=== PATIENT | male | born 1955 | race African-American/Black ===

== ENCOUNTER 2017-11-07 06:02 | Observation (INO) ==
[2017-11-07] MEDS ORDERED: ONDANSETRON 4 MG/2 ML VIAL IV PRN (08:26)
[2017-11-07] MEDS ORDERED: ZALEPLON 5 MG CAPSULE PO PRN (08:26)
[2017-11-07] MEDS ORDERED: POTASSIUM CHLORIDE 20 MEQ TABLET PO PRN (08:26)
[2017-11-07] MEDS ORDERED: ACETAMINOPHEN 325 MG TABLET PO PRN (08:26)
[2017-11-07] MEDS ORDERED: MAGNESIUM SULF RIDER 2 GM in PREMIX 1 EACH IV PRN ×2 (08:26→09:32)
[2017-11-07] MEDS ORDERED: MAGNESIUM SULF RIDER 4 GM in PREMIX 1 EACH IV PRN (08:26)
[2017-11-07] MEDS ORDERED: guaiFENesin/DM ER 600-30 MG TABLET PO PRN (08:26)
[2017-11-07] MEDS ORDERED: BISACODYL 5 MG TABLET PO PRN (08:26)
[2017-11-07] MEDS ORDERED: NITROGLYCERIN 2% OINT 1 INCH/GM PACK TOP STA (08:31)
[2017-11-07 08:45] LABS: Basophils % 0.4 % (0.0-0.8); Eosinophils % 0.7 % (0.00-10.9); Hematocrit 41.5 VOL% (42.0-52.0); Hemoglobin 13.4 GM/DL (14.0-18.0); Immature Granulocytes % 0.4 %; Immature Granulocytes Absolute 0.02 #; Lymphocytes # 2.3 10*3/uL (1.4-4.0); Mean Corpuscular HGB Conc 32.3 GM/DL (32-36); Mean Corpuscular Hemoglobin 27 PG (27-34); Mean Corpuscular Volume 83.2 FL (87-102); Mean Platelet Volume 10.3 FL (9.6-12.0); Monocytes # 0.4 10*3/uL (0.11-0.8); Monocytes % 6.3 % (1.7-12.7); Neutrophils # 2.8 10*3/uL (1.4-7.4); Neutrophils % 51.2 % (38.7-73.9); Platelet Count 236 T/CUMM (130-400); Red Blood Count 4.99 MC/CUMM (3.8-5.5); Red Cell Distribution Width 14.4 % (9.3-17.3); White Blood Count 5.5 T/CUMM (4-12)
[2017-11-07 08:46] LABS: Calcium 8.9 MG/DL (8.5-10.1); Osmolality,Calculated 283.4 MOS/KG (273-304); Potassium 3.7 MMOL/L (3.5-5.1)
[2017-11-07 08:55] LABS: Risk Ratio 3.62
[2017-11-07] MEDS ORDERED: ASPIRIN CHEW 81 MG TABLET PO ONE (09:16)
[2017-11-07] MEDS ORDERED: NITROGLYCERIN 2% OINT 1 INCH/GM PACK TOP ONE (09:16)
[2017-11-07] MEDS ORDERED: PANTOPRAZOLE 40 MG TABLET PO ONE (09:16)
[2017-11-07] MEDS ORDERED: LISINOPRIL 10 MG TABLET ONE (09:16)
[2017-11-07 09:18] LABS: CKMB % 3.8 %
[2017-11-07] MEDS: LISINOPRIL 10 MG TABLET PO SCH (09:19)
[2017-11-07] MEDS: PANTOPRAZOLE 40 MG TABLET PO SCH (09:20)
[2017-11-07 09:21] LABS: Troponin I Only 5.15 NG/ML (0.00-0.045)
[2017-11-07] MEDS: SODIUM CHLORIDE 0.9% 1,000 ML IV SCH ×2 (09:28→15:33)
[2017-11-07] MEDS ORDERED: POTASSIUM CHLORIDE RIDER 10 MEQ in PREMIX 1 EACH IV PRN (09:32)
[2017-11-07] MEDS ORDERED: DIAZEPAM 5 MG TABLET PO ONE (09:32)
[2017-11-07] MEDS ORDERED: diphenhydrAMINE CAP 25 MG CAPSULE PO ONE (09:32)
[2017-11-07] MEDS: METOPROLOL SUCCINATE XL 100 MG TABLET PO SCH (09:49)
[2017-11-07] MEDS ORDERED: MIDAZOLAM 2 MG/2 ML VIAL ONE (10:03)
[2017-11-07] MEDS ORDERED: fentaNYL 100 MCG/2 ML VIAL ONE (10:03)
[2017-11-07] MEDS ORDERED: ACETAMINOPHEN/CODEINE 300-30 MG TABLET PO PRN (10:52)
[2017-11-07] MEDS ORDERED: INFLUENZA VIRUS VACCINE 0.5 ML SYRINGE IM ONE (11:14)
[2017-11-07 12:08] LABS: CKMB % 5.5 %
[2017-11-07 12:13] LABS: Troponin I Only 9.83 NG/ML (0.00-0.045)
[2017-11-07] MEDS: INSULIN REGULAR 100 UNIT/ML SUBCUT SCH ×3 (12:15→21:34)
[2017-11-07] MEDS ORDERED: NITROGLYCERIN SL 0.4 MG TABLET SL PRN (13:05)
[2017-11-07 16:28] LABS: CKMB % 5.5 %
[2017-11-07 16:29] LABS: Troponin I Only 7.25 NG/ML (0.00-0.045)
[2017-11-07] MEDS ORDERED: ATORVASTATIN 40 MG TABLET PO SCH (21:00)
[2017-11-08 05:20] LABS: Basophils % 0.4 % (0.0-0.8); Eosinophils % 0.4 % (0.00-10.9); Hematocrit 37.8 VOL% (42.0-52.0); Hemoglobin 12.1 GM/DL (14.0-18.0); Immature Granulocytes % 0.2 %; Immature Granulocytes Absolute 0.01 #; Lymphocytes # 2.3 10*3/uL (1.4-4.0); Lymphocytes % 40.5 % (21.2-54.2); Mean Corpuscular Hemoglobin 27 PG (27-34); Mean Platelet Volume 10.5 FL (9.6-12.0); Monocytes # 0.5 10*3/uL (0.11-0.8); Neutrophils # 2.9 10*3/uL (1.4-7.4); Neutrophils % 50.5 % (38.7-73.9); Platelet Count 224 T/CUMM (130-400); Red Cell Distribution Width 14.2 % (9.3-17.3); White Blood Count 5.7 T/CUMM (4-12)
[2017-11-08 06:12] LABS: Calcium 8.5 MG/DL (8.5-10.1); Osmolality,Calculated 282.1 MOS/KG (273-304); Potassium 4.2 MMOL/L (3.5-5.1)
[2017-11-08 06:19] LABS: Troponin I Only 1.58 NG/ML (0.00-0.045)
[2017-11-08] MEDS ORDERED: CLOPIDOGREL 75 MG TABLET PO SCH (09:00)
[2017-11-08] MEDS ORDERED: ASPIRIN EC 325 MG TABLET PO SCH (09:00)
[2017-11-08] MEDS ORDERED: PNEUMOCOCCAL VACCINE (13 VALENT) 0.5 ML SYRINGE IM ONE (10:32)
[2017-11-08] MEDS: INSULIN REGULAR 100 UNIT/ML SUBCUT SCH ×2 (10:33→12:36)
[2017-11-08] MEDS: LISINOPRIL 10 MG TABLET PO SCH (10:41)
[2017-11-08] MEDS: METOPROLOL SUCCINATE XL 100 MG TABLET PO SCH (10:41)
[2017-11-08] MEDS: PANTOPRAZOLE 40 MG TABLET PO SCH (10:41)
[2017-11-08 11:59] VITALS: BP 117/75
== END 2017-11-08 13:22 | disposition home or self-care (01) ==
LOC: EDUNIT# → N.ED 06:02 → N.CL 10:22 → N.TELES 10:22 → N.CL 10:23 → N.TELES 10:54 → UNDODISOB 11:28
PROVIDERS: ADMIT Internal Medicine Cardiovascular Disease; ATTEND Internal Medicine Cardiovascular Disease
PROC: CLCCHCL (ICD-10-PCS; 2017-11-07 10:15)

== ENCOUNTER 2018-09-12 20:48 | Observation (INO) ==
[2018-09-13] MEDS ORDERED: DIPH/TET/ACEL PERT BOOSTER VACCINE 0.5 ML VIAL IM ONE (00:55)
[2018-09-13] MEDS ORDERED: cefTRIAXone 1,000 MG VIAL IM STA (00:55)
[2018-09-13] MEDS ORDERED: HYDROmorphone 2 MG/1 ML VIAL IV PRN (01:48)
[2018-09-13] MEDS ORDERED: ONDANSETRON 4 MG/2 ML VIAL IV PRN (01:48)
[2018-09-13 03:22] LABS: Basophils % 0.5 % (0.0-0.8); Eosinophils # 0.1 10*3/uL (0.0-0.87); Eosinophils % 1.4 % (0.00-10.9); Hematocrit 40.3 VOL% (42.0-52.0); Hemoglobin 12.5 GM/DL (14.0-18.0); Immature Granulocytes % 0.5 %; Immature Granulocytes Absolute 0.03 #; Lymphocytes # 1.9 10*3/uL (1.4-4.0); Lymphocytes % 30.2 % (21.2-54.2); Mean Corpuscular Hemoglobin 27 PG (27-34); Mean Corpuscular Volume 85.6 FL (87-102); Mean Platelet Volume 10.8 FL (9.6-12.0); Monocytes # 0.6 10*3/uL (0.11-0.8); Monocytes % 9.2 % (1.7-12.7); Neutrophils # 3.7 10*3/uL (1.4-7.4); Neutrophils % 58.2 % (38.7-73.9); Platelet Count 216 T/CUMM (130-400); Red Blood Count 4.71 MC/CUMM (3.8-5.5); Red Cell Distribution Width 14.6 % (9.3-17.3); White Blood Count 6.3 T/CUMM (4-12)
[2018-09-13 03:47] LABS: Albumin 3.8 G/DL (3.4-5.0); Bilirubin,Total 0.7 MG/DL (0.2-1.0); Calcium 8.9 MG/DL (8.5-10.1); Osmolality,Calculated 284.7 MOS/KG (273-304); Potassium 4.3 MMOL/L (3.5-5.1); Total Protein 7.5 G/DL (6.4-8.3)
[2018-09-13] MEDS ORDERED: PNEUMOCOCCAL VACCINE (13 VALENT) 0.5 ML SYRINGE IM ONE (04:21)
[2018-09-13] MEDS ORDERED: INFLUENZA VIRUS VACCINE 0.5 ML SYRINGE IM ONE (04:24)
[2018-09-13] MEDS: SODIUM CHLORIDE 0.45% 1,000 ML IV SCH ×2 (04:56→12:17)
[2018-09-13] MEDS ORDERED: SULFAMETHOX/TRIMETHOPRIM 800-160 MG TABLET PO SCH (10:30)
[2018-09-13 13:47] VITALS: BP 138/87
[2018-09-14] MEDS ORDERED: cefTRIAXone 2,000 MG in SYRINGE 1 EACH IV SCH (02:00)
== END 2018-09-13 14:15 | disposition home or self-care (01) ==
LOC: N.ED 20:48 → N.EDINP 09-13 01:46 → INTOOBSV 09-13 01:46 → N.3E 09-13 02:12
PROVIDERS: ADMIT Surgery; ATTEND Surgery